=== PATIENT | male | born 1965 | race Caucasian/White ===

== ENCOUNTER 2019-12-21 07:30 | Day surgery (SDC) | payer BC ==
[2019-12-19 14:32] VITALS: BMI 20.5
[~2019-12-21 07:30] MED LIST: LACTATED RINGERS 1,000 ML IV SCH
[2019-12-21 07:52] VITALS: RESP 16; TEMP 97.9
[2019-12-21] MEDS ORDERED: LIDOCAINE 1% (10MG/ML) FOR IV START INTRADERMA ONE (07:56)
[2019-12-21] MEDS ORDERED: LIDOCAINE 1% INJ 10MG/ML (20 ML MDV) ONE (08:51)
[2019-12-21] MEDS ORDERED: PROPOFOL 10 MG/ML 20 ML VIAL IV ONE (08:51)
--- NOTE | 2019-12-21 09:12 | P.PCN ---
Date of Procedure: 12/21/19 Procedure(s) Performed: BRIEF HISTORY: Patient is a 54-year-old pleasant white male scheduled for an elective colonoscopy as a part of screening for colorectal neoplasia. PROCEDURE PERFORMED: Colonoscopy with biopsy and snare polypectomy. PREOPERATIVE DIAGNOSIS: Screening for colon cancer. IV sedation per Anesthesia. PROCEDURE: After informed consent was obtained, the patient, was brought into the endoscopy unit. IV sedation was administered by Anesthesia under continuous monitoring. Digital rectal examination was normal. Initially the Olympus CF-160 flexible video colonoscope was then inserted in the rectum, gradually advanced into the cecum without any difficulty. Careful examination was performed as the scope was gradually being withdrawn. Ileocecal valve and the appendiceal orifice were visualized and appeared normal. Prep was excellent. Mucosa of the cecum, ascending colon, transverse colon, descending colon, sigmoid colon, appeared normal. In the rectum there were 2 polyps measuring 2 mm and 7 mm size both of which were removed by biopsy and snare polypectomy respectively. Retroflexion was performed in the rectum and no lesions were seen. The patient tolerated the procedure well. IMPRESSION: 2 mm and 7 mm rectal polyp status post removal by cold biopsy and snare poly pectomy respectively Rest of the colon appeared normal RECOMMENDATIONS: Findings of this examination were discussed with the patient as well as his family. He was advised to follow with the biopsy results. If the biopsy shows an adenoma he can have a repeat colonoscopy in 5 years.
[2019-12-21 09:26] VITALS: BP 130/88; PULSE 62
--- NOTE | 2020-01-01 14:20 | CDI ---
Outpatient Documentation Clarification Form Date: 01/01/20 CDS/Senior Integration Developer Name: Frances Torres Phone: If any questions, call Maria C Baker Laundry Clerk at [phone] Patient Name: Jose Martin Malagon Admit Date: 12/21/19 Discharge Date: 12/21/19 ATTENTION: The [facility] Coding Staff appreciate your assistance in clarifying documentation. Please respond to the clarification below the line at the bottom and electronically sign. The [facility] Coding Staff will review the response and follow-up as needed. Please Note: Queries are made part of the Legal Health Record. If you have any questions, please contact the Laundry Clerk. Dear. Dr. Burris Please provide clarification as to the methods of polyp removal. On the Procedure note in the body of the report it is stated that 2mm and 7mm rectal polyps are BOTH removed by cold biopsy and snare polypectomy respectively. Also on the Procedure note under Final Impression it is stated that 2mm and 7mm polyps are removed by cold biopsy and snare polypectomy respectively. Please clarify the following: Both the 2mm and 7mm polyps were removed by cold biopsy and then by snare polypectomy The 2mm polyp was removed by cold biopsy and the 7mm polyp was removed by snare polypectomy Thank you for your kind consideration, MTDD
== END 2019-12-21 09:58 | disposition home or self-care (01) ==
LOC: ORWHC2ENDO 07:30
PROVIDERS: ATTEND Internal Medicine Gastroenterology
DX: Z12.11 Encounter for screening for malignant neoplasm of colon (principal); D12.8 Benign neoplasm of rectum; Z86.010 Personal history of colon polyps; Z87.891 Personal history of nicotine dependence
CPT/HCPCS: 88305; 45385; J2001; J2704; 45380

== ENCOUNTER → 2023-05-18 | Outpatient (CLI) | payer BC ==
--- NOTE | 2023-05-19 08:05 | CTL ---
EXAMINATION TYPE: CT Low Dose Lung DATE OF EXAM ORDERED: 05/18/2023 HISTORY: Personal tobacco use. Lung cancer screening CT DLP: 1.[address] CTDI: 106.8 mGy Automated exposure control for dose reduction was used. SCREENING VISIT: Initial COMPARISON: None TECHNIQUE: Low dose computed tomography scan was performed through the chest at 1 mm thick sections a nd reconstructed images in the coronal plane at [address] DIAGNOSTIC QUALITY: Satisfactory FINDINGS: LUNG NODULES: Present, detailed below: 1. There is a 1.3 x 1.2 cm calcification in the posterior-lateral left upper lung field. Series 4 janet ge 65. LUNGS: COPD: Severity: Mild. Coupled bullae at the right apex and peribronchial thickening is present diffus hang. Fibrosis: Severity: None Lymph nodes: Non- Other findings: None RIGHT PLEURAL SPACE: Effusion: None Calcification: None Thickening: None Pneumothorax: None LEFT PLEURAL SPACE: Effusion: None Calcification: None Thickening: None Pneumothorax: None HEART: Heart Size: Normal Coronary calcification: Mild Pericardial effusion: Normal OTHER FINDINGS: Upper abdomen: Normal Bony thorax: Normal Supraclavicular region: Normal Other: Ascending thoracic aorta at the level the main pulmonary artery measures 3.7 cm. The main pul monary artery at the bifurcation measures 2.9 cm. IMPRESSION: 1. No suspicious findings. FOLLOW UP CT CHEST RECOMMENDATION: Follow-up low-dose CT chest [address] LUNG RAD: Lung-Rad 2 Benign Appearance or Behavior
== END | disposition home or self-care (01) ==
LOC: RADCTMAIN 16:01
PROVIDERS: ATTEND Family Medicine
DX: Z12.2 Encounter for screening for malignant neoplasm of respiratory organs (principal); Z87.891 Personal history of nicotine dependence
CPT/HCPCS: 71271